=== PATIENT | female | born 1975 | race Caucasian/White ===

== ENCOUNTER 2025-08-24 11:13 | Outpatient (CLI) | payer OTHER, SELFPAY ==
--- NOTE | 2025-08-24 11:20 | MM_ITS ---
WS: [id number] SCREENING DIGITAL BREAST TOMOSYNTHESIS MAMMOGRAM WITH CAD HISTORY: SCREENING COMPARISON: None available. Bilateral CC and MLO with tomosynthesis and synthetic mammography submitted. Computer aided detection analyzed. Breast composition: The breasts are heterogeneously dense, which may obscure small masses. Partially obscured lobulated masses in the anterior LEFT breast. The largest mass 9.9 x 7.6 x 11 mm. There is a smaller adjacent mass in the anterior breast which is partially obscured also. Benign calcifications. No mass in the RIGHT breast identified. MM/MM [facility] tomosynthesis [id number] IMPRESSION: BI-RADS: 0 - Incomplete: Need additional imaging evaluation FOLLOW UP: Need Additional Imaging LEFT breast: Spot compression views (CC and MLO). True ML. Ultrasound to follow if abnormality persists.
== END 2025-08-24 11:14 | disposition home or self-care (01) ==
LOC: MOBLMAM 11:19
PROVIDERS: PCP Nurse Practitioner Family; Visit Provider Nurse Practitioner Family
DX: Z12.31 Encounter for screening mammogram for malignant neoplasm of breast (principal); R92.323 Mammographic fibroglandular density, bilateral breasts; N63.20 Unspecified lump in the left breast, unspecified quadrant; R92.1 Mammographic calcification found on diagnostic imaging of breast
CPT/HCPCS: 77061; 77067